=== PATIENT | female | born 1975 ===

== ENCOUNTER 2016-11-26 00:54 | Emergency (ER) | payer MEDICARE, OTHER ==
[~2016-11-26 00:54] MED LIST: BRIM5DRO10 OP; BRIM5DRO2; CEPH500C PO; CYCL10TA9 PO; DIAZ5TAB PO; DIFL5DRO; FEXO-15 PO; FLUT16SP; FLUT16SP2 NS; FOLI1TAB18; HYDR-3481 PO; HYDR-3605 PO; HYDR-3825; HYDR200T PO; HYDR200T5; HYDR50CA3; IBUP-1827 PO; METH2.5T; NAPR500T PO; OMEP-113 PO; OMEP20TA86 PO; TIZA2TAB3 PO; TIZA4TAB4; TRAM50TA2 PO; ZLP5T PO; ZOLP5TAB6
[2016-11-26 00:57] VITALS: BP 129/75; PULSE 86; RESP 14; O2SAT 100
--- NOTE | 2016-11-26 01:49 | ED.REPORT ---
HPI-Eye Problem Date of Service Nov 26, 2016 ED Provider: Fred Olmstead MD A 41 year old female with a medical history including glaucoma, lupus, VKH - autoimmune uveitis, and frequent ED visits presents to the ED with bilateral eye pain and photophobia onset today. The patient has been stressed recently. She denies eye foreign body, eye redness, eye discharge, or other symptoms. The patient has had similar symptoms in the past and is being followed an retail merchandiser. Nursing Notes Stated Complaint: BILATERAL EYE PAIN Chief Complaint: Eye Nursing Notes Reviewed: Yes Allergies: Coded Allergies: tramadol (Verified Allergy, Severe, seizures, 11/26/16) propoxyphene napsylate (Verified Allergy, Unknown, 11/26/16) cyclobenzaprine (Verified Adverse Reaction, Severe, seizure, 11/26/16) methocarbamol (Verified Adverse Reaction, Intermediate, SWELLING, 11/26/16) Scheduled Brimonidine Tartrate (Alphagan P) 5 Ml Drops 1 DRP OP DAILY Fluticasone Propionate (Flonase Nasal) 16 Gm [place].susp 1 SPRAY NS BID HydrOXYzine HCl (HydrOXYzine HCl) 10 Mg Tablet 10 MG PO TID Hydrocodone/Acetaminophen (Vicodin Es 7.5-300 mg Tablet) 1 Each Tablet 1 EACH PO Q4 Hydroxychloroquine Sulfate (Plaquenil) 200 Mg Tablet 200 MG PO DAILY Omeprazole (Omeprazole) 20 Mg Tablet.dr 20 MG PO DAILY Omeprazole Magnesium (Omeprazole) 20 Mg Capsule.dr 20 MG PO DAILY Tizanidine (Tizanidine) 2 Mg Tablet 2 MG PO DAILY Zolpidem (Ambien) 5 Mg Tab 5 MG PO HS Scheduled PRN Cyclobenzaprine (Cyclobenzaprine) 10 Mg Tablet 10 MG PO TID PRN PRN Spasm Ibuprofen (Ibuprofen) 600 Mg Tablet 600 MG PO QID PRN PRN For Pain Naproxen (Naprosyn) 500 Mg Tablet 500 MG PO BID PRN PRN For Pain Tramadol (Tramadol) 50 Mg Tablet 100 MG PO Q6H PRN PRN For Pain Miscellaneous Medications Brimonidine Tartrate (Alphagan P) 5 Ml Drops Difluprednate (Durezol) 5 Ml Drops Fluticasone Propionate (Fluticasone Propionate Nasal) 16 Gm [place].susp Folic Acid (Folic Acid) 1 Mg Tablet Hydrocodone-Acetaminophen 7.5-325 mg (Hydrocodone-Acetaminophen 7.5-325 mg) 1 Each Tablet Hydroxychloroquine Sulfate (Hydroxychloroquine Sulfate) 200 Mg Tablet Hydroxyzine Pamoate (HydrOXYzine Pamoate) 50 Mg Capsule Methotrexate Sodium (Methotrexate) 2.5 Mg Tablet Tizanidine (Tizanidine) 4 Mg Tablet Zolpidem (Zolpidem) 5 Mg Tablet General Time Seen by MD: 01:48 Chief Complaint Both eyes affected, Pain Hx Obtained From: Patient Arrived By: Walk-in Sudden in Onset?: Yes Onset Occurred: 9 - 12 hours ago Symptom Duration: Since onset Location: : Eye both Quality: Painful Severity: Current: Moderate Severity: Maximum: Moderate Associated with: Reports: Photophobia, Denies: Eye tearing, Foreign body sensation Pertinent Negative: Relieved by nothing Related History: Reports: Glaucoma, Uveitis Immunizations: Unknown Recent Healthcare: No recent doctor visit Similar Sx Previous: Yes Past Medical History Past Medical History Glaucoma Lupus Pekd-Aongkrii-Wcqycz (VKH)- autoimmune uveitis, can cause retinal detachment Chronic arthritis Frequent ED user Past Surgical History Reports: Cataract surgery Reports: Tubal ligation Family History cardiac disease diabetes stroke Smoking History Current Every Day Smoker Social History Alcohol Use: Denies alcohol use Drug Use: Denies drug use Other Social History: Good social support, Frequent ED visitor, Local resident Occupation staying with daughter and son in law., no work or school, lives with boyfriend Ambulatory Status Independent Review of Systems Review of Systems Note: - Eye foreign body Constitutional: Denies: Fever Eyes: Reports: Eye pain bilateral, Photophobia, Denies: Discharge bilateral, Redness bilateral Complete sys rev & neg: except as marked. Respiratory: Denies: Non-productive cough, Shortness of breath GI: Denies: Diarrhea, Vomiting Psychiatric: Reports: Stress Physical Exam Initial Vital Signs Vital Signs (First) Date Time Temp Pulse Resp B/P Pulse Ox O2 Delivery O2 Flow Rate FiO2 11/26/16 00:57 36.8 86 14 129/75 100 Room Air Initial VS: Reviewed Neck: Supple, Full range of motion Respiratory: No respiratory distress Skin: Warm, Dry, No cyanosis Neurologic: Alert, Oriented, Nonfocal Psychiatric: Mood/affect normal, Behavior normal, Normal thought content Head / Eyes: Atraumatic, Normocephalic, PERRL, EOMI, No scleral icterus, Conjunctiva NL Pupils: Positive: Photophobia L, Photophobia R Conjunctiva / Sclera: Negative: Injected left, Injected right No anterior flare No synechia No inflammation in limbus No hyperemia General/Constitutional: Awake, Alert ENT: Airway patent, Mucous membranes moist Re-Eval/Medical Decision Med Decision/Clinical Course 41-year-old with lupus and EKG the anus by history, presents with pain in both eyes. This could be an exacerbation of her uveitis, but there are no findings on slit lamp to suggest that. There is no hyperemia, no flare, no synechia, and no injection of the limbus. Similar episodes in the past resulted in doubling up of her steroid drops and she is advised to do that again now. Follow-up with her retail merchandiser as soon as possible. Source of Hx: Old records Re-Evaluation/Progress : Time of Eval: 02:15 Patient Status: Condition improved Re-Evaluation/Progress Note: Additional physical exam performed. Discussed with patient physical exam findings, diagnosis, and plan for discharge. Follow-up and return to the ER instructions given. Patient agrees with plan for care and all questions were addressed. Counseled Regarding: Diagnosis, Need for follow-up, When/why to return to ED Discharge & Departure Shift Change Sign-Out Response to Therapy: Improved Primary Impression: Uveitis Additional Impressions: Systemic lupus erythematosus Systemic lupus erythematosus type: unspecified Systemic lupus erythematosus organ involvement: unspecified Qualified Code: M32.9 - Systemic lupus erythematosus, unspecified Teuu-Wsumgbbd-[id number] syndrome of right eye Disposition: Home Discharge Condition All VS Reviewed: Yes Condition: Improved Patient Instructions: Iritis (ED) Additional Instructions: Contact your eye doctor this morning for follow-up in the next day or two at the latest. I do not see any evidence of white cells in the anterior chamber, but with your prior history, you need close follow-up. Double up your eyedrops as directed to twice daily Continue your current medicines otherwise. [facility] Scribe Attestation Portions of this note were transcribed by Grace Brown. I, Dr. Olmstead, personally performed the history, physical exam, and medical decision-making; I reviewed and confirmed the accuracy of the information in the transcribed note. Signed by: Dmitriy Jon, 11/26/2016, 03:50 copies to: [facility],Fred Terry MD Nov 26, 2016 01:49 GRACE BROWN Nov 26, 2016 02:06
[2016-11-26] MEDS ORDERED: LORazepam 2 mg Tablet PO ONE (02:10)
[2016-11-26] MEDS ORDERED: Tetracaine 0.5% 4 mL Ophthalmic Solution ONE (02:15)
[2016-11-26 02:40] VITALS: BP 128/72; PULSE 80; RESP 15; O2SAT 98
== END 2016-11-26 02:41 | disposition home or self-care (01) ==
LOC: SED 00:54
DX: H20.9 Unspecified iridocyclitis (principal); M32.9 Systemic lupus erythematosus, unspecified; H20.8 Other iridocyclitis; F17.200 Nicotine dependence, unspecified, uncomplicated; Z88.8 Allergy status to other drugs, medicaments and biological substances; Z88.5 Allergy status to narcotic agent
CPT/HCPCS: 96374; 99284; J1885